=== PATIENT | female | born 1955 | race Caucasian/White ===

== ENCOUNTER → 2019-05-03 | Outpatient (CLI) | payer MEDICARE ==
--- NOTE | 2019-05-03 12:05 | XR ---
EXAMINATION TYPE: XR knee limited RT DATE OF EXAM: 05/03/2019 CLINICAL HISTORY: Chronic intermittent right knee pain and weakness TECHNIQUE: Frontal and lateral views of the right knee are obtained. COMPARISON: None. FINDINGS: There is no acute fracture/dislocation evident in right knee. Old fracture is well cortica radha of the superior pole of the patella. Incidentally noted fabella. Patellofemoral compartment join t space narrowing and marginal osteophytes are seen. Protuberant marginal osteophytes are seen of the medial compartment with mild joint space narrowing and smaller marginal osteophytes of the lateral c ompartment. There is diffuse osseous demineralization. No sizable suprapatellar joint effusion on rad iograph. IMPRESSION: 1. No acute fracture or dislocation in the right knee. 2. Moderate tricompartmental arthropathy greatest in the patellofemoral compartment adnexa within the medial compartment. 3. Old healed well-corticated fracture of the superior pole of patella. 4. Diffuse osseous demineralization.
== END | disposition home or self-care (01) ==
LOC: RADXRYALE 11:21
PROVIDERS: ATTEND Internal Medicine
DX: M17.11 Unilateral primary osteoarthritis, right knee (principal)

== ENCOUNTER → 2019-12-31 | Outpatient (CLI) | payer MEDICARE ==
--- NOTE | 2019-12-31 14:34 | MM ---
Reason for exam: additional evaluation requested from prior study. Last mammogram was performed 4 years and 4 months ago. History: Patient is postmenopausal and has history of breast cancer at age 46. Malignant mastectomy, May 03, 2002. Radiation therapy of the left breast, 2002. Malignant excisional biopsy of the left breast, December 07, 2001. Chemotherapy. Took tamoxifen for 7 years beginning at age 46. Physical Findings: Nurse did not find any significant physical abnormalities on exam. MG Diagnostic Mammo RT w CAD CC, MLO, and XCCL view(s) were taken of the right breast. Prior study comparison: September 08, 2015, right breast MG diagnostic mammo RT w CAD. June 10, 2013, right diagnostic mammogram w/CAD. The breast tissue is heterogeneously dense. This may lower the sensitivity of mammography. There is no discrete abnormality. No significant new findings when compared with previous films. These results were verbally communicated with the patient and result sheet given to the patient on 12/31/19. ASSESSMENT: Negative, BI-RAD 1 RECOMMENDATION: Follow-up diagnostic mammogram of the right breast in 1 year.
== END | disposition home or self-care (01) ==
LOC: RADMAMWWP 13:37
PROVIDERS: ATTEND Internal Medicine
DX: Z08 Encounter for follow-up examination after completed treatment for malignant neoplasm (principal); Z85.3 Personal history of malignant neoplasm of breast
CPT/HCPCS: 77065

== ENCOUNTER → 2020-09-26 | Outpatient (CLI) | payer MEDICARE ==
[2020-09-26 08:07] LABS: HCT 43.8 % (34.0-46.0); HGB 14.8 gm/dL (11.4-16.0); MCH 31.6 pg (25.0-35.0); MCHC 33.9 g/dL (31.0-37.0); MCV 93.4 fL (80.0-100.0); Mean Platelet Volume 7.8; Platelet Count 217 k/uL (150-450); RBC 4.68 m/uL (3.80-5.40); WBC 8.8 k/uL (3.8-10.6)
[2020-09-26 08:13] LABS: Prothrombin Time 10.5 sec (9.0-12.0)
[2020-09-26 08:18] LABS: ALT 25 U/L (4-34); AST 21 U/L (14-36); African American GFR (CKD) >90 (>60 ml/min/1.73 sqM); Albumin 4.3 g/dL (3.5-5.0); Alkaline Phosphatase 119 U/L (38-126); Anion Gap 6 mmol/L; Blood Urea Nitrogen 21 mg/dL (7-17); Calcium 9.5 mg/dL (8.4-10.2); Carbon Dioxide 28 mmol/L (22-30); Chloride 106 mmol/L (98-107); Glucose 136 mg/dL (74-99); Non-African American GFR(CKD) 89 (>60 ml/min/1.73 sqM); Potassium 4.2 mmol/L (3.5-5.1); Sodium 140 mmol/L (137-145); Total Bilirubin 0.5 mg/dL (0.2-1.3); Total Protein 7.3 g/dL (6.3-8.2)
[2020-09-26 08:27] LABS: Appearance,Urine Cloudy (Clear); Bacteria,Urine Many /hpf; Bilirubin,Urine Negative (Negative); Blood,Urine Small (Negative); Color,Urine Yellow; Glucose,Urine (UA) Negative (Negative); Hyaline Casts,Urine 1 /lpf (0-2); Ketones,Urine Negative (Negative); Leukocyte Esterase,Urine Large (Negative); Mucus,Urine Few /hpf; Nitrite,Urine Negative (Negative); Protein,Urine Trace (Negative); RBC,Urine 2 /hpf (0-5); Specific Gravity,Urine 1.026 (1.001-1.035); Squamous Epithelial Cell,Urine 12 /hpf (0-4); Urobilinogen,Urine <2.0 mg/dL (<2.0); WBC,Urine 29 /hpf (0-5)
== END | disposition home or self-care (01) ==
LOC: LABPAT 07:30
PROVIDERS: ATTEND Orthopaedic Surgery Sports Medicine
DX: Z01.812 Encounter for preprocedural laboratory examination (principal); I25.2 Old myocardial infarction; R94.31 Abnormal electrocardiogram [ECG] [EKG]
CPT/HCPCS: 36415; 80053; 81001; 85027; 85610; 85730; 87070; 93005

== ENCOUNTER 2020-10-19 05:33 | Day surgery (SDC) | payer MEDICARE ==
[2020-10-13 11:05] VITALS: BMI 41.1
[~2020-10-19 05:33] MED LIST: ACETAMINOPHEN TAB 500 MG TAB PO PRN; DEXAMETHASONE SOD PHOSPHATE 4 MG/ML 1 ML VIAL IV ONE; GABAPENTIN 300 MG CAP PO PRN; MELOXICAM 7.5 MG TAB PO PRN; ONDANSETRON 4 MG/2 ML VIAL IVP ONE; ONDANSETRON 4 MG/2 ML VIAL IVP PRN; ROPIVACAINE/EPI/CLONIDINE/KET 50 ML SYRINGE MISCELLANE PRN; TRANEXAMIC ACID 1,000 MG in SODIUM CHLORIDE 0.9% 100 ML IVPB PRN; ceFAZolin 3 GM in SODIUM CHLORIDE 0.9% 100 ML IVPB PRN
[2020-10-19] MEDS ORDERED: LIDOCAINE 1% (10MG/ML) FOR IV START INTRADERMA ONE (06:23)
[2020-10-19] MEDS: LACTATED RINGERS 1,000 ML IV SCH ×3 (06:25→20:29)
[2020-10-19] MEDS ORDERED: MIDAZOLAM 2 MG/2 ML VIAL IVP ONE (06:41)
[2020-10-19] MEDS ORDERED: HYDROmorphone 0.5 MG/0.5 ML SYRINGE IVP PRN ×2 (07:00→09:37)
[2020-10-19] MEDS ORDERED: fentaNYL (PF) 50 MCG/ML 2 ML AMP ONE (07:05)
[2020-10-19] MEDS ORDERED: LIDOCAINE 1% INJ 10MG/ML (20 ML MDV) ONE (07:05)
[2020-10-19] MEDS ORDERED: ROPIVACAINE 5 MG/ML 30 ML VIAL ONE (07:05)
[2020-10-19] MEDS ORDERED: DEXAMETHASONE SOD PHOSPHATE 4 MG/ML 1 ML VIAL ONE (07:05)
[2020-10-19] MEDS ORDERED: TRANEXAMIC ACID 1,000 MG/10 ML VIAL ONE (07:05)
[2020-10-19] MEDS ORDERED: SODIUM CHLORIDE 0.9% 100 ML BAG ONE (07:05)
[2020-10-19] MEDS ORDERED: PROPOFOL 10 MG/ML 20 ML VIAL IV ONE (07:05)
[2020-10-19] MEDS ORDERED: ceFAZolin 1,000 MG in SODIUM CHLORIDE 0.9% 1,000 ML IRRIGATION ONE (07:50)
--- NOTE | 2020-10-19 09:07 | P.ANPRN ---
Procedure Note - Anesthesia - Nerve Block Performed Right Adductor Canal Infusion Time Out Performed: Yes Date of Procedure: 10/19/20 Procedure Start Time: 06:39 Procedure Stop Time: 06:51 Location of Patient: PreOp Indication: Acute Post-Operative Pain, Requested by Surgeon Sedation Type: Sedate with meaningful contact maintained Preparation: Sterile Prep, Sterile Dressing Position: Supine Catheter: Indwelling Needle Types: On-Q Needle Gauge: 18 Ultrasound used to visualize needle placement: Yes Ultrasound used to observe medication spread: Yes Injectate: 0.5% Ropivacaine (see comment for volume) (20 ml + decadron 4 mg) Blood Aspirated: No Pain Paresthesia on Injection Noted: No Resistance on Injection: Normal Image Stored and Saved: Yes Events: Uneventful and Well Tolerated Right iPack Single Time Out Performed: Yes Date of Procedure: 10/19/20 Procedure Start Time: 06:52 Procedure Stop Time: 06:57 Location of Patient: PreOp Indication: Acute Post-Operative Pain, Requested by Surgeon Sedation Type: Sedate with meaningful contact maintained Preparation: Sterile Prep, Sterile Dressing Position: Left Lateral Catheter: None Needle Types: Pajunk Needle Gauge: 20 Ultrasound used to visualize needle placement: Yes Ultrasound used to observe medication spread: Yes Injectate: 0.5% Ropivacaine (see comment for volume) (20 ml + decadron 4 mg) Blood Aspirated: No Pain Paresthesia on Injection Noted: No Resistance on Injection: Normal Image Stored and Saved: Yes Events: Uneventful and Well Tolerated
[2020-10-19] MEDS ORDERED: ACETAMINOPHEN TAB 325 MG TAB PO PRN (09:37)
[2020-10-19] MEDS ORDERED: MAGNESIUM HYDROXIDE 2,400 MG/10 ML CUP PO PRN (09:37)
[2020-10-19] MEDS ORDERED: HYDROmorphone 0.2 MG/1 ML SYRINGE IVP PRN (09:37)
[2020-10-19] MEDS ORDERED: NALOXONE 0.4 MG/ML 1 ML VIAL IV PRN (09:37)
[2020-10-19] MEDS ORDERED: NA PHOS,M-B/NA PHOS,DI-BA 133 ML ENEMA RECTAL PRN (09:37)
[2020-10-19] MEDS ORDERED: HYDROmorphone 1 MG/ML 1 ML SYRINGE IVP PRN (09:37)
[2020-10-19] MEDS ORDERED: ONDANSETRON 4 MG/2 ML VIAL IVP PRN (09:37)
[2020-10-19] MEDS ORDERED: TEMAZEPAM 15 MG CAP PO PRN (09:37)
[2020-10-19] MEDS ORDERED: bisacodyL 10 MG SUPP RECTAL PRN (09:37)
[2020-10-19] MEDS ORDERED: traMADol 50 MG TAB PO PRN (09:37)
[2020-10-19] MEDS ORDERED: diazePAM 5 MG TAB PO PRN (09:37)
[2020-10-19] MEDS ORDERED: HYDROcodone/APAP 7.5-325MG 1 EACH TAB PO PRN (09:42)
[2020-10-19] MEDS ORDERED: ROPIVACAINE 0.2%-NS ON-Q PUMP 1,090 MG, EMPTY PAIN BALL 1 EACH MISCELLANE PRN (09:42)
[2020-10-19] MEDS ORDERED: ROPIVACAINE 0.2%-NS ON-Q PUMP 2 MG/ML EACH MISCELLANE ONE (10:03)
--- NOTE | 2020-10-19 10:25 | XR ---
EXAMINATION TYPE: XR knee limited RT DATE OF EXAM: 10/19/2020 CLINICAL HISTORY: Postoperative TECHNIQUE: 2 views of the right knee are obtained. COMPARISON: 05/03/2019. FINDINGS: The patient is status post right total knee replacement in excellent alignment. Soft tissue gas and s oft tissue swelling is indicative of recent postoperative status. IMPRESSION: Status post recent right total knee replacement.
[2020-10-19] MEDS: ceFAZolin 3 GM in SODIUM CHLORIDE 0.9% 100 ML IVPB SCH (16:44)
[2020-10-19] MEDS: HYDROcodone/APAP 7.5-325MG 1 EACH TAB PO PRN (18:28)
[2020-10-19] MEDS: hydrOXYzine pamoate 25 MG CAP PO PRN (18:28)
--- NOTE | 2020-10-19 19:28 | OP ---
OPERATIVE REPORT DATE OF SERVICE: 10/19/2020. SURGEON: Pancho Mejia MD. AUTOMOTIVE GENERATOR REPAIRER: Rome MARTI. PREOPERATIVE DIAGNOSIS: Right knee osteoarthrosis. POSTOP DIAGNOSIS: Right knee osteoarthrosis. OPERATION: Right total knee arthroplasty. ANESTHESIA: Spinal sedation. ESTIMATED BLOOD LOSS: 100 mL. TOURNIQUET: Tourniquet time was 49 minutes at 250 mmHg. COMPLICATIONS: None apparent. DRAINS: None. DISPOSITION: Postanesthesia care unit. INDICATIONS: Jennifer is a very pleasant 65-year-old female with longstanding history of right knee pain. History and physical examination are consistent with advanced right knee osteoarthrosis. She has been through significant nonoperative management up to this point. Further treatment options were discussed and she decided to go forward with a right total knee arthroplasty. The risks of procedure were discussed with her in detail. These risks include, but are not limited to risk of infection, nerve damage, bleeding, pain, and a small risk of deep vein thrombosis which could lead to fatal pulmonary embolism. There is also risk of loosening of the implant which could require revision operation. The patient understands these risks. All of her questions were answered to her satisfaction. Appropriate informed consent was obtained. DESCRIPTION OF PROCEDURE: The patient was identified in the preoperative holding area. Surgical site was marked by both the patient and myself. She was given 2 grams of Ancef IV prophylactic purposes. She was then transferred to the operative suite. She was placed supine on the operative table. A spinal anesthetic was then administered and dosed per the anesthesia without apparent complication. Examination under anesthesia was then performed. The patient was 2-3 degrees shy of full extension. She had 100 degrees of flexion. The medial collateral ligament, lateral collateral ligament and posterior cruciate ligaments were stable. Tourniquet was then placed high on the right upper thigh well-padded in preparation for surgery. The patient's right lower extremity was then prepped and draped in usual sterile fashion. Standard surgical pause undertaken to ensure that we were operating the correct site and that appropriate preoperative antibiotics were given. All staff were in agreement and we proceeded. The outlines of the patella marked surgical pen. A planned 12 cm vertical incision centered over the patella was marked with surgical pen. Leg was then exsanguinated with an Esmarch dressing. The knee was then flexed and tourniquet inflated to 250 mmHg. The total tourniquet time for the procedure was 49 minutes Incision was then made with a 10 blade scalpel. Dissection carried down sharply overlying fascia. Great care was taken to minimize the skin flaps. The knee was then exposed using a standard medial parapatellar approach. A small cuff of quadriceps tendon was then left for suturing. She was in a bit of varus preoperatively. A standard medial release was then made. Superficial medial collateral ligament was dissected off the bone around to the posterior aspect of the proximal tibia. The medial meniscus was then excised as well. The lateral meniscus was also released anteriorly. The leg was then externally rotated. The patella was everted. The knee was flexed. Retractors were then placed to protect the collateral ligaments. I then proceeded to remove the infrapatellar fat pad. It was excised sharply tangentially with the fibers of the patellar tendon. I then proceeded to remove peripheral osteophytes. It was done with a rongeur. I then proceeded with the distal femoral resection. She did have near full extension. A planned 9 mm resection was then done. The femoral canal was then entered and then the femur approximately 10 mm anterior to the origin of the posterior cruciate ligament. The niurka was then advanced down the center of the femur and placed intramedullary. Based on the preoperative radiographs, the angle between the anatomic and mechanical axis of the femur was approximately 4-5 degrees. The valgus angle of the distal femoral cutting guide was then set at 4 degrees for the right knee. The distal femoral cutting guide was then advanced over the intramedullary niurka. This was seated firmly against the femur. Then as mentioned planned to take 9 mm off the distal femur. The cutting block was then secured onto the femur with pins. The jig was then removed. The distal femoral cut was made through the slot of the block. The pins then removed. The femoral cutting block was removed. The accuracy of the distal femoral cuts was checked with 2 flat bars. I then proceeded with femoral sizing. The posterior referencing sizing guide was held firmly against the resected distal surface of the femur. The posterior condyles were resting on the posterior plane of the guide. The sizing stylus was then placed on the anterior femur. The size was measured as a size 10. I then assessed for femoral rotation. Plan was for 3 degrees external rotation. Three degrees external rotation was placed onto the jig. These holes were then marked. I then confirmed the rotation by 3 separate methods. This done using epicondylar axis as well as Whitesides line and posterior referencing. They deemed that the external rotation was proper. I then went forward placing the femoral cutting block. This was placed over the previously placed pin holes. The Teddy wing was then placed on the anterior slots to ensure that we would not notch the anterior femur with the anterior femoral cut. I then proceeded with the anterior femoral cut. This was flush with the anterior cortex of the femur. The posterior cuts were then made followed by the anterior chamfer cut, then the posterior chamfer cut. The cutting block was then removed. Throughout the resection, the collateral ligaments were protected with retractors. I then placed a trial size 10 femur. It was slightly wide, but the narrow fit very nicely and it fit flush with the distal end of the femur. The drill hole was then made. I then proceeded with the tibial cut. I planned for cruciate retaining knee. The guide was placed and set for varus valgus and for slope. The height was set for approximate 2 mm resection from the medial tibial plateau which was the lower side. I was happy with the alignment amount of resection. The cutting block was then pinned to the proximal tibia. The alignment niurka was removed. The proximal tibia was resected with a reciprocating saw. Again, this was done with retractors protecting the collateral ligaments as well as the posterior cruciate ligament. I then proceeded to evaluate the flexion extension gaps. A 10 mm block was then placed. The flexion and extension gaps were equal. I then proceed with resection of posterior osteophytes. She had very minimal posterior osteophytes. This was done using a curved osteotome. This resected the posterior osteophytes and posterior capsule stripping was done off the posterior aspect of the femur at this time. The osteophytes were then removed. I then proceed with resection of patella. The thickness of patella was measured using a caliper. The thickness was 22 mm. The thickness of the anticipated patellar dome was taken into account. Resection was then performed and confirmed to be equal in 4 quadrants using a caliper. Approximately 14 mm of bone remained after resection. A 32 x 8.5 standard patellar trial was then placed. The holes drilled. The trial was then placed. I then proceed with sizing the tibial plate. Size E tibial plate fit very nicely. I then placed the trial femur the tibial tray and patellar button. The 10 mm trial tibial insert was also placed. The components fit very nicely. She had full extension and flexion. The extension and flexion gaps were equal and stable to varus and valgus stress. The patella tracked appropriately. Tibial tray rotation was then marked with a Bovie. This was externally rotated properly. I then proceeded with tibial preparation. First, drilled the femoral holes and removed the femoral component. The tibial tray was then set for proper external rotation as well as mediolateral placement onto the tibia. It was then pinned into place. I then proceeded punching the keel. I then decided to proceed with cementing of all of our components. The knee was thoroughly irrigated with sterile saline solution via pulse lavage. The lateral geniculate artery was identified and cauterized. All blood was removed from the bone of the tibia femur and patella with pulse lavage. I then proceed with cementing. Two packs of antibiotic bone cement were prepared on the back table by the rn medical surgical. I then proceed with cementing the tibia first. The cement was impacted into the keel as well as deeply seated in the bone. A second coat of cement was then placed. The tibia was then impacted into place. Excess cement was removed with [place]'s and Joker's. I then proceeded with cementing the femoral component. The femoral component was also cemented using standard technique. Excess cement was removed. A 10 mm trial insert was then placed into the knee. It was brought into full extension with a constant axial load placed until the cement had hardened. The patellar component was then cemented. This held firmly with a compressive device until the cement had dried. When the cement had dried, the knee was taken out of extension. All excess cement was removed from around the prosthesis. I then trialed the knee with a 10 mm insert. The flexion and extension gaps were appropriate. The knee was stable. It came in full extension. I decided to go forward with 10 mm medial congruent cross linked cruciate- retaining tibial insert. Polyethylene was then placed on the tibial tray and locked into place. The knee was then reduced. The knee was again further irrigated with sterile saline solution with antibiotic added. The tourniquet was then deflated. The total tourniquet time for the procedure was 49 minutes at 250 mmHg. Final components were Mady Persona size 10 narrow cruciate-retaining femoral component, size E tibial tray, a 10 mm medial congruent cruciate-retaining polyethylene insert and a 32 x 8.5 mm patella. I then proceeded with closure. Again, the knee was thoroughly irrigated. The quadriceps tendon and the medial retinaculum were reapproximated with #2 Ethibond suture. The extensor mechanism was then closed with a running #2 Quill suture. Subcutaneous tissues were closed with 2-0 Vicryl interrupted suture. The skin was closed with a running 3-0 Quill suture. Dermabond was applied to the incision. Sterile compressive dressing was then applied. All sponge and needle counts were deemed correct prior to closure. The patient tolerated the procedure without apparent complication. She was transferred recovery room in stable condition. MMODL / IJN: [id number] /
[2020-10-19] MEDS: ASPIRIN 81 MG PO SCH (20:29)
[2020-10-19] MEDS ORDERED: SENNOSIDES-DOCUSATE SODIUM 1 EACH TAB PO SCH (21:00)
[2020-10-20] MEDS: HYDROcodone/APAP 7.5-325MG 1 EACH TAB PO PRN ×3 (00:17→13:17)
[2020-10-20] MEDS: ceFAZolin 3 GM in SODIUM CHLORIDE 0.9% 100 ML IVPB SCH (00:19)
[2020-10-20] MEDS: LACTATED RINGERS 1,000 ML IV SCH (06:44)
[2020-10-20 07:30] VITALS: BP 110/70; PULSE 88; RESP 17; TEMP 98.8
[2020-10-20] MEDS: ASPIRIN 81 MG PO SCH (08:12)
[2020-10-20] MEDS: hydrOXYzine pamoate 25 MG CAP PO PRN ×2 (08:13→13:17)
[2020-10-20] MEDS ORDERED: lisinopriL 10 MG TAB PO SCH (09:00)
[2020-10-20] MEDS ORDERED: ASPIRIN 81 MG PO SCH (09:00)
--- NOTE | 2020-10-20 09:14 | P.PN ---
Progress Note - Text 10/20/20 636am 65-year-old female status post total knee replacement by Dr. Mejia. Patient has an On-Q pump for postop pain control with the solution running at 8 mL an hour with a VAS of 2. Dressing clean dry and intact. Plan to continue On-Q pump
[2020-10-20 11:09] LABS: Basophils # (A) 0.02 X 10*3/uL (0.00-0.10); Basophils % (A) 0.2 %; Eosinophils # (A) 0.01 X 10*3/uL (0.04-0.35); Eosinophils % (A) 0.1 %; HCT 37.6 % (37.2-46.3); Lymphocytes # (A) 1.53 X 10*3/uL (0.90-5.00); MCH 30.8 pg (27.0-32.0); MCHC 31.9 g/dL (32.0-37.0); MCV 96.7 fL (80.0-97.0); Mean Platelet Volume 11.3 fL (9.5-12.2); Monocytes % (A) 10.2 %; Neutrophils # (A) 8.93 X 10*3/uL (1.80-7.70); Neutrophils % (A) 76.2 %; Platelet Count 219 X 10*3/uL (140-440); RBC 3.89 X 10*6/uL (4.10-5.20); RDW 13.2 % (11.5-14.5); WBC 11.73 X 10*3/uL (4.50-10.00)
--- NOTE | 2020-10-20 11:23 | P.DS ---
Providers Expected date of discharge: 10/20/20 Attending physician: Pancho Mejia Consults: 10/19/20 09:37 Consult Physician Routine Consulting Provider: Tavia Malhotra Consult Reason/Comments: post op medical management Do you want consulting provider notified?: Yes Primary care physician: Tea Ghotra - Discharge Diagnosis(es) (1) Osteoarthritis of right knee Patient was admitted to the OR on 10/19/20 to undergo a right total knee arthroplasty. She had failed conservative measures as an outpatient and desired to proceed with elective surgery after given informed consent. She underwent the above procedure which she tolerated well without complication. Postoperative hospital course has remained without complication. On day of discharge she is afebrile, vital signs stable, labs within acceptable ranges, tolerating by mouth meds and diet, voiding without difficulty, positive flatus, denies abdominal pain or calf pain, pain is controlled on oral pain medication and has no new complaints. Wound is benign, neurovascular status is intact, calf is soft and nontender, abdomen soft and nontender. Review of systems is negative for numbness, tingling, fever, chills, chest pain, shortness of breath, nausea, vomiting, dizziness, headaches, slurred speech or other. Current Visit: Yes Status: Acute Priority: Medium Procedures: Right TKA Patient Condition at Discharge: Good Plan - Discharge Summary Discharge Rx Participant: No New Discharge Prescriptions: New Aspirin [Adult Low Dose Aspirin EC] 81 mg PO BID #60 tablet. HYDROcodone/APAP 7.5-325MG [[place] 7.5-325] 1 - 2 each PO Q6HR PRN #42 tab PRN Reason: Pain Docusate [Colace] 100 mg PO BID #60 capsule No Action Multivit with Calcium,Iron,Min [Women's Multivitamin] 1 each PO DAILY Sulfamethoxazole/Trimethoprim [Sulfamethoxazole-Tmp Ds Tablet] 1 each PO BID Diclofenac Sodium Gel [Voltaren Gel] 2 gm TOPICAL DIRECTED lisinopriL 10 mg PO DAILY Aspirin [Adult Low Dose Aspirin EC] 81 mg PO DAILY Clear Nails Pro (Antifungal) 1 dose TOPICAL BID Discharge Medication List Aspirin [Adult Low Dose Aspirin EC] 81 mg PO DAILY 10/13/20 [History] Clear Nails Pro (Antifungal) 1 dose TOPICAL BID 10/13/20 [History] Diclofenac Sodium Gel [Voltaren Gel] 2 gm TOPICAL DIRECTED 10/13/20 [History] Multivit with Calcium,Iron,Min [Women's Multivitamin] 1 each PO DAILY 10/13/20 [History] Sulfamethoxazole/Trimethoprim [Sulfamethoxazole-Tmp Ds Tablet] 1 each PO BID 10/13/20 [History] lisinopriL 10 mg PO DAILY 10/13/20 [History] Aspirin [Adult Low Dose Aspirin EC] 81 mg PO BID #60 tablet. 10/20/20 [Rx] Docusate [Colace] 100 mg PO BID #60 capsule 10/20/20 [Rx] HYDROcodone/APAP 7.5-325MG [[place] 7.5-325] 1 - 2 each PO Q6HR PRN #42 tab 10/20/20 [Rx] Follow up Appointment(s)/Referral(s): Pancho Mejia MD [STAFF PHYSICIAN] - 10 Days Activity/Diet/Wound Care/Special Instructions: Attend outpatient Physical Therapy at [facility] on 10/23/20 at 1:30 p.m. as scheduled prior to surgery. Keep wound clean and dry Take meds as directed Follow-up with Dr. Mejia in office Weight bear as tolerated May shower in 3 days if no bleeding Discharge Disposition: HOME WITH HOME HEALTH SERVICES
--- NOTE | 2020-10-20 11:44 | P.CONS ---
History of Present Illness - Reason for Consult Leukocytosis - History of Present Illness Patient is pleasant 65-year-old female was admitted for right knee arthroplasty patient is clinically doing well but pressure is low, which is expected postoperatively patient does take 10 mg of Zocor. Patient denied any fever chills patient does have leukocytosis denied any dysuria denied any cough no evidence of for sepsis clinically. Patient's Wiley catheter was removed. Patient did well with physical therapy is being discharged today REVIEW OF SYSTEMS: CONSTITUTIONAL: No fever, no malaise, no fatigue. HEENT: No recent visual problems or hearing problems. Denied any sore throat. CARDIOVASCULAR: No chest pain, orthopnea, PND, no palpitations, no syncope. PULMONARY: No shortness of breath, no cough, no hemoptysis. GASTROINTESTINAL: No diarrhea, no nausea, no vomiting, no abdominal pain. NEUROLOGICAL: No headaches, no weakness, no numbness. HEMATOLOGICAL: Denies any bleeding or petechiae. GENITOURINARY: Denies any burning micturition, frequency, or urgency. MUSCULOSKELETAL/RHEUMATOLOGICAL: Denies any joint pain, swelling, or any muscle pain. ENDOCRINE: Denies any polyuria or polydipsia. The rest of the 14-point review of systems is negative. PHYSICAL EXAMINATION: GENERAL: The patient is alert and oriented x3, not in any acute distress. Well developed, well nourished. HEENT: Pupils are round and equally reacting to light. EOMI. No scleral icterus. No conjunctival pallor. Normocephalic, atraumatic. No pharyngeal erythema. No thyromegaly. CARDIOVASCULAR: S1 and S2 present. No murmurs, rubs, or gallops. PULMONARY: Chest is clear to auscultation, no wheezing or crackles. ABDOMEN: Soft, nontender, nondistended, normoactive bowel sounds. No palpable organomegaly. MUSCULOSKELETAL: Deferred to orthopedic surgery EXTREMITIES: No cyanosis, clubbing, or pedal edema. NEUROLOGICAL: Gross neurological examination did not reveal any focal deficits. SKIN: No rashes. Assessment and plan -Hypertension:: Patient is bit hypotensive which is expected in the perioperative period recommended her to hold off lisinopril today and tomorrow -Leukocytosis without any of this infection at this time patient was as an outpatient which can be discontinued at this time as patient is suitable days of antibiotic -Right knee arthroplasty for severe multi-joint osteoarthritis clinically doing well and is being discharged on aspirin 81 mg twice a day for DVT prophylaxis. Patient can be discharged from medical perspective Past Medical History Past Medical History: Cancer, Hypertension, Osteoarthritis (OA) Additional Past Medical History / Comment(s): LT BREAST CANCER 2003-(SURGERY, CHEMO AND RADIATION)., VARICOSE VEINS, CURRENT UTI WITH RX .,TOENAIL FUNGUS., STATES SHE WAS TAKING EXCESS TYLENOL AND WAS TOLD SHE WAS CAUSING LIVER DAMAGE. History of Any Multi-Drug Resistant Organisms: None Reported Past Surgical History: Breast Surgery, Tonsillectomy Additional Past Surgical History / Comment(s): LT MASECTOMY Past Anesthesia/Blood Transfusion Reactions: No Reported Reaction Past Psychological History: No Psychological Hx Reported Additional Psychological History / Comment(s): . Smoking Status: Former smoker Past Alcohol Use History: Occasional Additional Past Alcohol Use History / Comment(s): QUIT SMOKING 6 YRS AGO (2014)., STARTED SMOKING AT AGE 17, SMOKED A PACK PER WEEK. Past Drug Use History: None Reported - Past Family History Father History Unknown: Yes Family Medical History: No Reported History Additional Family Medical History / Comment(s): WAS RAISED BY NALLELY Mother History Unknown: Yes Family Medical History: No Reported History Son(s) Family Medical History: Cancer Additional Family Medical History / Comment(s): TESTICULAR CANCER Medications and Allergies Home Medications Medication Instructions Recorded Confirmed Type Aspirin [Adult Low Dose Aspirin EC] 81 mg PO DAILY 10/13/20 10/19/20 History Clear Nails Pro (Antifungal) 1 dose TOPICAL BID 10/13/20 10/19/20 History Diclofenac Sodium Gel [Voltaren 2 gm TOPICAL DIRECTED 10/13/20 10/19/20 History Gel] Multivit with Calcium,Iron,Min 1 each PO DAILY 10/13/20 10/19/20 History [Women's Multivitamin] Aspirin [Adult Low Dose Aspirin EC] 81 mg PO BID #60 tablet. 10/20/20 Rx Docusate [Colace] 100 mg PO BID #60 capsule 10/20/20 Rx HYDROcodone/APAP 7.5-325MG [[place] 1 - 2 each PO Q6HR PRN #42 tab 10/20/20 Rx 7.5-325] lisinopriL 10 mg PO DAILY #0 10/20/20 10/19/20 Rx Allergies Allergy/AdvReac Type Severity Reaction Status Date / Time No Known Allergies Allergy Verified 10/19/20 05:55 Physical Exam Vitals: Vital Signs Temp Pulse Resp BP Pulse Ox 10/20/20 07:29 98.8 F 88 17 110/70 100 10/20/20 04:00 98.1 F 63 16 121/67 95 10/20/20 02:00 97.4 F L 68 14 110/70 90 L 10/20/20 00:24 97.4 F L 74 16 138/80 96 10/19/20 20:00 98.2 F 68 14 135/80 94 L 10/19/20 14:31 77 144/82 10/19/20 14:16 82 124/71 10/19/20 14:01 73 134/81 10/19/20 13:46 79 146/78 10/19/20 13:34 97.8 F 85 16 147/83 96 10/19/20 13:00 72 16 126/69 100 10/19/20 12:30 57 L 16 136/69 98 10/19/20 12:00 60 16 119/61 99 Intake and Output 10/19/20 10/20/20 10/20/20 22:59 06:59 14:59 Intake Total 540 Balance 540 Intake: Oral 540 Other: Voiding Method Toilet # Voids 3 Weight 133.22 kg Results CBC & Chem 7: 10/20/20 06:36 Labs: Abnormal Lab Results - Last 24 Hours (Table) 10/20/20 Range/Units 06:36 WBC 11.73 H (4.50-10.00) X 10*3/uL RBC 3.89 L (4.10-5.20) X 10*6/uL MCHC 31.9 L (32.0-37.0) g/dL Neutrophils # 8.93 H (1.80-7.70) X 10*3/uL Monocytes # 1.20 H (0.20-1.00) X 10*3/uL Eosinophils # 0.01 L (0.04-0.35) X 10*3/uL
[2020-10-20] MEDS ORDERED: MULTIVITAMINS, THERA 1 EACH TAB PO SCH (12:00)
== END 2020-10-20 14:00 | disposition home health service (06) ==
LOC: OR 05:33 → 4SSUR 12:45 → OR 10-20 14:00
PROVIDERS: ATTEND Orthopaedic Surgery Sports Medicine
DX: M17.11 Unilateral primary osteoarthritis, right knee (principal); I10 Essential (primary) hypertension; Z85.3 Personal history of malignant neoplasm of breast; Z87.891 Personal history of nicotine dependence; Z79.899 Other long term (current) drug therapy; Z79.82 Long term (current) use of aspirin; E66.01 Morbid (severe) obesity due to excess calories; Z68.43 Body mass index [BMI] 50.0-59.9, adult
CPT/HCPCS: 97162; 64999; 64448; 76942; 85025; 73560; 27447; C1776; C1713; J2250; J1100; J0690 ×3; J2405; J2001; J3010; J2795 ×2; J2704; J1170; 88305; 88311

== ENCOUNTER → 2021-06-13 | Outpatient (CLI) | payer MEDICARE ==
--- NOTE | 2021-06-14 10:44 | MM ---
Reason for exam: screening (asymptomatic). Last mammogram was performed 1 year and 5 months ago. History: Patient is postmenopausal and has history of breast cancer at age 46. Malignant mastectomy, May 03, 2002. Radiation therapy of the left breast, 2002. Malignant excisional biopsy of the left breast, December 07, 2001. Chemotherapy. Took tamoxifen for 7 years beginning at age 46. Physical Findings: A clinical breast exam by your physician is recommended on an annual basis and results should be correlated with mammographic findings. MG 3D Scr Jared Unilateral W/Cad CC and MLO view(s) were taken of the right breast. Prior study comparison: December 31, 2019, right breast MG diagnostic mammo RT w CAD. September 08, 2015, right breast MG diagnostic mammo RT w CAD. The breast tissue is heterogeneously dense. This may lower the sensitivity of mammography. There are benign appearing round calcifications in the right breast. There is no discrete abnormality. ASSESSMENT: Benign, BI-RAD 2 RECOMMENDATION: Routine screening mammogram of the right breast in 1 year.
--- NOTE | 2021-06-14 11:05 | BD ---
EXAMINATION TYPE: Axial Bone Density DATE OF EXAM: 06/13/2021 COMPARISON: NONE CLINICAL HISTORY: 66 years year old Female. ICD-10 CODE: N95.8 MENOPAUSAL AND PERIMENOPAUSAL DISORDE R Height: 5 FT 9 1/2 IN Weight: 299 FRAX RISK QUESTIONS: Alcohol (3 or more units per day): NO Family History (Parent hip fracture): NO Glucocorticoids (More than 3mos): NO (Ex: prednisone, prednisolone, methylprednisolone, dexamethasone, and hydrocortisone). History of Fracture in Adulthood: YES Secondary Osteoporosis: 1. Type 1 Diabetes: NO 2. Hyperthyroidism: NO 3. Menopause before 45: YES 4. Malnutrition: NO 5. Chronic liver disease: NO Rheumatoid Arthritis: YES Current Tobacco Use: FORMER RISK FACTORS HISTORY OF: Surgery to Spine/Hip(right/left)/Wrist (right/left): NO Family History of Osteoporosis: NO Active: YES Diet low in dairy products/other sources of calcium: NO Postmenopausal woman: YES Take estrogen and/or progesterone medications: NO Lost more than 2 inches in height since high school: YES Frequent falls: NO Poor Health: GOOD Hyperparathyroidism: NO Adrenal Insufficiency: NO MEDICATIONS: Additional Medications: LISINOPRIL Additional History: EXAM MEASUREMENTS: Bone mineral densitometry was performed using the [employer]. Bone mineral density as measured about the Lumbar spine is: ----- L1-L4(G/cm2): 1.399 T Score Values are as follows: ----- L1: 1.6 ----- L2: 1.2 ----- L3: 1.8 ----- L4: 2.4 ----- L1-L4: 1.8 Bone mineral density has: INCREASED 6.6 % since study of: 2008 Bone mineral density about the R hip (g/cm2): 0.923 Bone mineral density about the L hip (g/cm2): 0.772 T Score values are as follows: -----R Neck: -0.8 -----L Neck: -1.9 -----R Total: -0.8 -----L Total: -1.6 Bone mineral density has: DECREASED -2.4 % since study of: 2008 FRAX%s: The graph provided illustrates a 9.4 % chance for a major osteoporotic fx and a 1.3 % chance for the hips probability for fx in 10 years time. IMPRESSION: Osteopenia NOTE: T-SCORE=SD OF THE YOUNG ADULT MEAN.
== END | disposition home or self-care (01) ==
LOC: RADBDWWP 15:14
PROVIDERS: ATTEND Internal Medicine
DX: Z12.31 Encounter for screening mammogram for malignant neoplasm of breast (principal); M85.852 Other specified disorders of bone density and structure, left thigh; Z78.0 Asymptomatic menopausal state; Z85.3 Personal history of malignant neoplasm of breast
CPT/HCPCS: 77067; 77080

== ENCOUNTER → 2023-01-24 | Outpatient (CLI) | payer MEDICARE ==
[2023-01-24 08:54] LABS: Partial Thromboplastin Time 26.8 sec (22.0-30.0); Prothrombin Time 10.7 sec (10.0-12.5)
[2023-01-24 11:13] LABS: HCT 43.8 % (37.2-46.3); HGB 14.5 d/dL (12.0-15.0); MCHC 33.1 d/dL (32.0-37.0); MCV 93.6 FL (80.0-97.0); Mean Platelet Volume 11.4 FL (9.5-12.2); NRBC Per 100 WBC 0 X 10*3/uL (0.00-0.01); Platelet Count 232 X 10*3/uL (140-440); RBC 4.68 X 10*6/uL (4.10-5.20); RDW 13.8 % (11.5-14.5)
[2023-01-24 11:26] LABS: ALT 17 U/L (8-44); AST 13 U/L (13-35); Albumin 4.2 d/dL (3.8-4.9); Albumin/Globulin Ratio 1.56 Ratio (1.60-3.17); Alkaline Phosphatase 139 U/L (41-126); BUN/Creat Ratio 24.43 Ratio (12.00-20.00); Blood Urea Nitrogen 17.1 mg/dL (9.0-27.0); Calcium 9.6 mg/dL (8.7-10.3); Carbon Dioxide 32.9 mmol/L (21.6-31.8); Chloride 107 mmol/L (96-109); Globulin 2.7 d/dL (1.6-3.3); Glucose 115 mg/dL (70-110); Potassium 4.4 mmol/L (3.5-5.5); Sodium 143 mmol/L (135-145); Total Bilirubin 0.4 mg/dL (0.3-1.2); Total Protein 6.9 d/dL (6.2-8.2)
[2023-01-24 14:49] LABS: Appearance,Urine Clear (Clear); Bilirubin,Urine Negative (Negative); Blood,Urine Negative (Negative); Color,Urine Yellow (Yellow); Ketones,Urine Negative (Negative); Nitrite,Urine Negative (Negative); Urobilinogen,Urine 0.2 E.U./DL
[2023-01-24 14:55] LABS: Bacteria,Urine 2+ (None Seen)
== END | disposition home or self-care (01) ==
LOC: LABPAT 07:21
PROVIDERS: ATTEND Orthopaedic Surgery
DX: Z01.812 Encounter for preprocedural laboratory examination (principal); M16.11 Unilateral primary osteoarthritis, right hip
CPT/HCPCS: 80053; 81001; 85027; 85610; 85730; 86850; 86900; 86901; 87070

== ENCOUNTER 2023-02-04 06:56 | Day surgery (SDC) | payer MEDICARE ==
[2023-01-30 11:05] VITALS: BMI 40.4
[~2023-02-04 06:56] MED LIST changes: +LACTATED RINGERS 1,000 ML IV SCH; +LIDOCAINE 1% (10MG/ML) FOR IV START INTRADERMA PRN; -ONDANSETRON 4 MG/2 ML VIAL IVP PRN; -ROPIVACAINE/EPI/CLONIDINE/KET 50 ML SYRINGE MISCELLANE PRN; +TRANEXAMIC 1,000 MG/100ML-NACL 1,000 MG in SALINE 1 100ML.BAG IVPB PRN; -TRANEXAMIC ACID 1,000 MG in SODIUM CHLORIDE 0.9% 100 ML IVPB PRN
[2023-02-04] MEDS ORDERED: HYDROmorphone 0.5 MG/0.5 ML SYRINGE IVP PRN ×4 (07:00→09:23)
[2023-02-04] MEDS ORDERED: MIDAZOLAM 2 MG/2 ML VIAL IVP ONE (08:08)
[2023-02-04] MEDS ORDERED: fentaNYL (PF) 50 MCG/ML 2 ML AMP IVP ONE (08:10)
--- NOTE | 2023-02-04 08:30 | P.ANPRN ---
Procedure Note - Anesthesia - Nerve Block Performed Right Dilip Single Time Out Performed: Yes Date of Procedure: 02/04/23 Procedure Start Time: : Procedure Stop Time: 08:12 Location of Patient: PreOp Indication: Acute Post-Operative Pain, Requested by Surgeon Specifically requested for management of pain by : Sundeep Buckley Sedation Type: Sedate with meaningful contact maintained Preparation: Sterile Prep Position: Supine Needle Types: Pajunk Needle Gauge: 21 Ultrasound used to visualize needle placement: Yes Ultrasound used to observe medication spread: Yes Injectate: 0.5% Ropivacaine (see comment for volume) (15 ml + 10 ml Ns + 4 mg dexamethasone) Blood Aspirated: No Pain Paresthesia on Injection Noted: No Resistance on Injection: Normal Image Stored and Saved: Yes Events: Uneventful and Well Tolerated
[2023-02-04] MEDS ORDERED: DEXAMETHASONE SOD PHOSPHATE 4 MG/ML 1 ML VIAL ONE (09:20)
[2023-02-04] MEDS ORDERED: fentaNYL (PF) 50 MCG/ML 2 ML AMP ONE (09:20)
[2023-02-04] MEDS ORDERED: MIDAZOLAM 2 MG/2 ML VIAL ONE (09:20)
[2023-02-04] MEDS ORDERED: SODIUM CHLORIDE 0.9% (PF) 10 ML VIAL ONE (09:20)
[2023-02-04] MEDS ORDERED: PROPOFOL 10 MG/ML 20 ML VIAL IV ONE (09:20)
[2023-02-04] MEDS ORDERED: TRANEXAMIC 1,000 MG/100ML-NACL PREMIX BAG ONE (09:20)
[2023-02-04] MEDS ORDERED: ePHEDrine 50 MG/ML 1 ML VIAL ONE (09:20)
[2023-02-04] MEDS ORDERED: ROPIVACAINE 5 MG/ML 30 ML VIAL ONE (09:20)
[2023-02-04] MEDS ORDERED: NALOXONE 0.4 MG/ML 1 ML VIAL IV PRN (09:23)
[2023-02-04] MEDS ORDERED: ONDANSETRON 4 MG/2 ML VIAL IVP PRN (09:23)
[2023-02-04] MEDS ORDERED: MAGNESIUM HYDROXIDE 2,400 MG/30 ML CUP PO PRN (09:23)
[2023-02-04] MEDS ORDERED: HYDROcodone/APAP 7.5-325MG 1 EACH TAB PO PRN (09:28)
[2023-02-04] MEDS ORDERED: ROPIVACAINE 5 MG/ML 30 ML VIAL MISCELLANE ONE ×2 (09:55→10:50)
[2023-02-04] MEDS ORDERED: ceFAZolin 1,000 MG in SODIUM CHLORIDE 0.9% 1,000 ML IRRIGATION ONE (09:57)
--- NOTE | 2023-02-04 10:55 | P.OP ---
Date of Procedure: 02/04/23 Preoperative Diagnosis: Severe osteoarthritis right hip Postoperative Diagnosis: Severe osteoarthritis right hip Procedure(s) Performed: Right total hip arthroplasty with a direct anterior approach Implants: [employer] Polarstem standard size 4 with a collar [employer] R3, 3 hole hemispherical acetabular shell, 54 mm [employer] Reflection 6.5 mm cancellus screw, 20 mm 2 [employer] R3, XLPE 20 acetabular liner [employer] Oxinium femoral head 36 m, +12 All components were press-fit. The articulation is Oxinium on polyethylene. Anesthesia: spinal Surgeon: Sundeep Buckley Data Warehouse Administrator #1: Erin Torres Estimated Blood Loss (ml): 650 Pathology: none sent Condition: stable Disposition: PACU Indications for Procedure: After failure of conservative treatment we discussed the surgical and nonsu rgical treatment options at length. Patient wishes to proceed with a total hip arthroplasty with a direct anterior approach. Complications specific to this procedure were discussed at length, including but not limited to infection, leg length discrepancy, dislocation, nerve injury, and fracture. Covid-19 was also discussed at length with the patient, and they are aware of the current policies and procedures. The patient was given the option of delaying surgery, but they elect to proceed knowing these risks. Patient is aware of all these complications and informed consent was obtained Operative Findings: The operative findings are consistent with severe osteoarthritis of the right hip Description of Procedure: The patient was seen and evaluated in the preoperative area and the consent was reviewed. The operative site was marked with a skin marker. The patient verified the procedure and operative site. A KB block was placed by anesthesia in the preoperative area. The patient was then brought to the operating room and given preoperative antibiotics intravenously. 1 g of Tranexamic acid was also given intravenously. A spinal anesthetic was administered by the anesthesia department. The patient was then placed on the [place] table with the bony prominences well-padded. The hip area was then prepped with a ChloraPrep solution and draped in the usual sterile fashion. A universal timeout was then performed, which confirmed the patient's name, surgical site, ALLERGIES, and procedure being performed on the consent. Next the incision site was located at 1 cm distal and 4 cm lateral to the anterior superior iliac spine. The skin and subcutaneous tissues were sharply incised. Incision was carefully dissected down to the fascia overlying the tensor fascia lou muscle. This fascia was then incised in line with the muscle fibers. Care was taken to stay laterally in order to avoid injuring the lateral femoral cutaneous nerve. Next, using blunt finger dissection, the tensor fascia lou muscle was dissected off its investing fascia. The muscle was then carefully retracted laterally with a cobra retractor over the lateral neck of the femur. Next, the circumflex vessels were identified and cauterized using the Aquamantis device. The anterior hip capsule was then exposed. The capsule was then opened and an inverted T fashion. The retractors were then placed intracapsularly. The retractors were maintained intracapsular throughout the procedure. The proximal femur was then visualized. Fluoroscopic x-rays were then taken in order to evaluate the preoperative leg lengths. A small amount of traction was placed on the leg. The femoral neck was then osteotomized at the appropriate level above the lesser trochanter. A small wedge of bone was then removed from the remaining femoral head. Next, using a corkscrew the femoral head was removed from the acetabulum. On gross visual inspection, the femoral head had complete loss of articular cartilage and multiple periarticular osteophytes. The femoral head was then measured. Attention was then turned to the acetabulum. The acetabulum was exposed and any remaining labrum was excised. Sequential reaming of the acetabulum was performed using fluoroscopic guidance until there was a good bed of bleeding cancellus bone. When the appropriate size was reached, a trial was then placed. The position and fit of the trial was checked with fluoroscopy. The trial was then removed. Then, using fluoroscopic guidance, the final implant was impacted at 20 of anteversion and 40 of abduction, and fully seated in the acetabulum. 2 screws were then placed in the acetabulum. Again fluoroscopy was used to check position of the screws. Next, the liner was then impacted, with a 20 elevated liner located in the anterior superior quadrant. Component locking was confirmed. Attention was then directed to the femur. With the aid of the [place] table, the femur was externally rotated to approximately 130, extended, and adducted under the opposite leg. A side hook was then placed under the proximal femur, and the side hook elevator was used to elevate the proximal femur while releasing the capsule. Retractors were then placed. A capsular release was performed, as well as a release of the conjoined tendon, which afforded excellent v isualization of the proximal femur. Next, a box osteotome was used to lateralize the proximal femur. A hand plug shaper was then used to locate the femoral canal. Sequential broaching was then performed with appropriate size which afforded excellent fixation in the proximal femur. A trial was then placed with appropriate head and neck, and the hip was gently reduced with the aid of the [place] table. Fluoroscopy was then used to check position of the components, as well as to evaluate the leg lengths and offset. The leg lengths and offset were measured as closely as possible to ensure stability of the hip. The hip was then gently dislocated and the trials were then removed. Final implants were then impacted and the hip was again reduced. Final fluoroscopic x-rays confirmed that the components were in anatomic position. The leg lengths and offset were measured and were found to coincide with the trial measurements. The hip was also taken through range of motion, and found to be stable. The hip was then copiously irrigated with antibiotic solution with pulsatile lavage. The hip was then irrigated with Irrisept solution. The soft tissues were then injected with a ropivacaine solution. A second dose of 1 g of Tranexamic acid was also given intravenously. The fascia was then closed with 2-0 strata fix suture. The subcutaneous tissue was closed with 3-0 Vicryl. The subcuticular tissue was closed with 3-0 strata fix suture. The skin was then closed with Exofin skin glue. After the glue and dried, and Optifoam silver impregnated dressing was applied. The patient was t hen transferred to the recovery room in stable condition. The microbiology lab assistant NISHA Connelly was required due to the complexity of surgery, and the need for skilled operating room surgical technologist for positioning, draping, exposure, retraction, and closure of the wound.
[2023-02-04] MEDS ORDERED: LACTATED RINGERS 1,000 ML IV ONE (11:05)
--- NOTE | 2023-02-04 11:06 | XR ---
Intraoperative/procedural fluoroscopic services were provided for right total hip arthroplasty. Total fluoroscopy time is 31.4 seconds with a total of 3 submitted images to PACS. Total DAP 6.2679 Gycm2. Please see the operative note for further details.
--- NOTE | 2023-02-04 12:09 | XR ---
EXAMINATION TYPE: XR Hip Limited RT DATE OF EXAM: 02/04/2023 12:02 PM INDICATION: Patient age:Female; 67 years old; Reason for study: RIGHT ANTERIOR HIP; PHH. COMPARISON: Fluoroscopic images of the right hip of the same date TECHNIQUE: The right hip was examined in frontal projection. FINDINGS: Post right total hip arthroplasty changes. Hardware appears intact with appropriate alignme nt on this single frontal projection. There is associated soft tissue edema and gas. No acute fractur e or dislocation. IMPRESSION: Post right total hip arthroplasty changes. Hardware appears intact with appropriate alignment on this single frontal projection.
[2023-02-04] MEDS: SODIUM CHLORIDE 0.9% 1,000 ML IV SCH ×2 (15:17→23:55)
[2023-02-04] MEDS: HYDROcodone/APAP 7.5-325MG 1 EACH TAB PO PRN (17:31)
[2023-02-04] MEDS: ceFAZolin 3 GM in SODIUM CHLORIDE 0.9% 100 ML IVPB SCH (17:31)
[2023-02-04] MEDS: ASPIRIN 325 MG TAB PO SCH (20:40)
[2023-02-04] MEDS ORDERED: SENNOSIDES-DOCUSATE SODIUM 1 EACH TAB PO SCH (21:00)
[2023-02-05] MEDS: ceFAZolin 3 GM in SODIUM CHLORIDE 0.9% 100 ML IVPB SCH ×2 (01:48→09:42)
[2023-02-05 04:07] VITALS: RESP 17
[2023-02-05] MEDS: HYDROcodone/APAP 7.5-325MG 1 EACH TAB PO PRN (05:22)
[2023-02-05 08:11] VITALS: BP 123/78; PULSE 81; TEMP 96.6
[2023-02-05] MEDS ORDERED: DOCUSATE 100 MG CAP PO SCH (09:30)
[2023-02-05] MEDS: ASPIRIN 325 MG TAB PO SCH (09:42)
--- NOTE | 2023-02-05 10:09 | P.DS ---
Providers Expected date of discharge: 02/05/23 Attending physician: Sundeep Buckley Consults: 02/04/23 09:23 Consult Physician Routine Consulting Provider: Klever Francisco Consult Reason/Comments: medical management Do you want consulting provider notified?: Yes Primary care physician: Tea Ghotra - Discharge Diagnosis(es) (1) Osteoarthritis of right hip Current Visit: Yes Status: Acute (2) S/P total hip arthroplasty Current Visit: Yes Status: Acute Hospital Course: This is a 67-year-old female with known history of degenerative arthritis of the right hip. The patient presented for evaluation as an outpatient. After discussion and consideration patient elects to proceed with total hip arthroplasty. The patient is seen preoperatively by Dr. Buckley and medically cleared for surgery by their primary care physician. Patient is admitted to [facility] on 02/04/2023 for total hip arthroplasty. The procedure is performed without complication or sequelae. The patient is doing well postoperatively. Labs and vital signs are stable on day of discharge. On day of discharge patient's hip incision is healing well. There is minimal erythema. There is no drainage noted at this time. There is minimal soft tissue swelling to the hip and thigh. Patient has full foot and ankle motion without difficulty or pain. Calf is soft and nontender to palpation. Neurovascular status to the right lower extremity is intact. Patient is discharged home in good condition. Please see med rec for accurate list of home medications. Plan - Discharge Summary Discharge Rx Participant: Yes New Discharge Prescriptions: New Aspirin 325 mg PO BID #60 tab HYDROcodone/APAP 7.5-325MG [[place] 7.5-325] 1 - 2 tab PO Q6H PRN #32 tab PRN Reason: Pain Sennosides [Senokot] 2 tab PO DAILY PRN #60 tablet PRN Reason: Constipation No Action Multivit with Calcium,Iron,Min [Women's Multivitamin] 1 each PO DAILY Diclofenac Sodium Gel [Voltaren 1% Gel] 2 gm TOPICAL DIRECTED HYDROcodone/APAP 7.5-325MG [[place] 7.5-325] 1 - 2 each PO Q6HR PRN #42 tab PRN Reason: Pain Aspirin [Adult Low Dose Aspirin EC] 81 mg PO DAILY Clear Nails Pro (Antifungal) 1 dose TOPICAL BID Docusate [Colace] 100 mg PO BID #60 capsule lisinopriL [Prinivil] 10 mg PO DAILY #0 Discharge Medication List Aspirin [Adult Low Dose Aspirin EC] 81 mg PO DAILY 10/13/20 [History] Clear Nails Pro (Antifungal) 1 dose TOPICAL BID 10/13/20 [History] Diclofenac Sodium Gel [Voltaren 1% Gel] 2 gm TOPICAL DIRECTED 10/13/20 [History] Multivit with Calcium,Iron,Min [Women's Multivitamin] 1 each PO DAILY 10/13/20 [History] Docusate [Colace] 100 mg PO BID #60 capsule 10/20/20 [Rx] HYDROcodone/APAP 7.5-325MG [[place] 7.5-325] 1 - 2 each PO Q6HR PRN #42 tab 10/20/20 [Rx] lisinopriL [Prinivil] 10 mg PO DAILY #0 10/20/20 [Rx] Aspirin 325 mg PO BID #60 tab 02/04/23 [Rx] HYDROcodone/APAP 7.5-325MG [[place] 7.5-325] 1 - 2 tab PO Q6H PRN #32 tab 02/04/23 [Rx] Sennosides [Senokot] 2 tab PO DAILY PRN #60 tablet 02/04/23 [Rx] Follow up Appointment(s)/Referral(s): Tea Ghotra MD [Primary Care Provider] - 1 Week Sundeep Buckley DO [Doctor of Osteopathic Medicine] - 02/17/23 2:00 pm (With Erin) Activity/Diet/Wound Care/Special Instructions: Weightbearing as tolerated with walker. Leave dressing intact. Dressing may be removed by home care nurse or by patient in 7 days. Then change dressing twice daily until follow up. May shower with initial dressing intact and after removal. If dressing become saturated, please remove. Please take aspirin 325mg twice daily for 30 days to prevent blood clots. Recommend use of compression stockings daily until follow up to help prevent swelling and blood clots. May remove at night before sleeping. Please follow-up with [facility] in 2 weeks and call with any questions or concerns, . Discharge Disposition: HOME WITH HOME HEALTH SERVICES
[2023-02-05 11:34] LABS: Basophils # (A) 0.01 X 10*3/uL (0.00-0.10); Basophils % (A) 0.1 %; Eosinophils # (A) 0 X 10*3/uL (0.04-0.35); Eosinophils % (A) 0 %; HCT 37.1 % (37.2-46.3); HGB 11.8 g/dL (12.0-15.0); Lymphocytes # (A) 1.58 X 10*3/uL (0.90-5.00); Lymphocytes % (A) 14.5 %; MCH 30.6 pg (27.0-32.0); MCHC 31.8 g/dL (32.0-37.0); MCV 96.1 FL (80.0-97.0); Mean Platelet Volume 11.5 FL (9.5-12.2); Monocytes # (A) 1.47 X 10*3/uL (0.20-1.00); Monocytes % (A) 13.4 %; NRBC Per 100 WBC 0 X 10*3/uL (0.00-0.01); Neutrophils # (A) 7.83 X 10*3/uL (1.80-7.70); Neutrophils % (A) 71.6 %; Platelet Count 222 X 10*3/uL (140-440); RBC 3.86 X 10*6/uL (4.10-5.20); RDW 13.5 % (11.5-14.5); WBC 10.93 X 10*3/uL (4.50-10.00)
--- NOTE | 2023-02-05 11:43 | P.CONS ---
History of Present Illness - Reason for Consult Consult date: 02/05/23 - History of Present Illness This is a pleasant 67-year-old female with medical history of left breast cancer with left mastectomy and chemoradiation back in 2003, hypertension maintained on lisinopril daily. Patient is postoperative day #1 right hip total arthroplasty. Patient is also maintained on aspirin 81 mg daily this has been increased to aspirin 325 mg twice a day for 30 days following the orthopedic procedure. Would recommend at this time to hold patient's lisinopril as her blood pressure is in the 100-110 systolic recommend to monitor blood pressure at home and can resume lisinopril if blood pressure increases. REVIEW OF SYSTEMS: CONSTITUTIONAL: No fever, no malaise, no fatigue. HEENT: No recent visual problems or hearing problems. Denied any sore throat. CARDIOVASCULAR: No chest pain, orthopnea, PND, no palpitations, no syncope. PULMONARY: No shortness of breath, no cough, no hemoptysis. GASTROINTESTINAL: No diarrhea, no nausea, no vomiting, no abdominal pain. NEUROLOGICAL: No headaches, no weakness, no numbness. HEMATOLOGICAL: Denies any bleeding or petechiae. GENITOURINARY: Denies any burning micturition, frequency, or urgency. MUSCULOSKELETAL/RHEUMATOLOGICAL: Denies any joint pain, swelling, or any muscle pain. ENDOCRINE: Denies any polyuria or polydipsia. The rest of the 14-point review of systems is negative. PHYSICAL EXAMINATION: GENERAL: The patient is alert and oriented x3, not in any acute distress. Well developed, well nourished. HEENT: Pupils are round and equally reacting to light. EOMI. No scleral icterus. No conjunctival pallor. Normocephalic, atraumatic. No pharyngeal erythema. No thyromegaly. CARDIOVASCULAR: S1 and S2 present. No murmurs, rubs, or gallops. PULMONARY: Chest is clear to auscultation, no wheezing or crackles. ABDOMEN: Soft, nontender, nondistended, normoactive bowel sounds. No palpable organomegaly. MUSCULOSKELETAL: No joint swelling or deformity. EXTREMITIES: No cyanosis, clubbing, or pedal edema. Post Surgical right hip dr essing intact, no edema. NEUROLOGICAL: Gross neurological examination did not reveal any focal deficits. SKIN: No rashes. Assessment History right total hip arthroplasty postoperative day #1 Hypertension maintained on lisinopril recommend to hold for 1 to 2 days postoperative Hx left breast cancer with mastectomy and chemoradiation GI prophylaxis DVT prophylaxis as per primary Full Code Full Code Continue Aspirin 325 mg BID per orthopedics for 30 days post procedure afterwards recommend Continue with incentive spirometer 10 x an hour while awake As mentioned hold lisinopril and monitor Blood pressure Follow up with PCP Medically she is cleared for DC thank you for this consultation The impression and plan of care has been dictated by Yeni Singh, Nurse Practitioner as directed. Dr. Maryam MD I have performed a history and physical examination and medical decision making of this patient, discussed the same with the dictator, and agree with the dictators assessment and plan as written, documented as a scribe. Based on total visit time, I have performed more than 50% of this visit. Past Medical History Past Medical History: Cancer, Hypertension, Osteoarthritis (OA) Additional Past Medical History / Comment(s): LT BREAST CANCER 2003-HAD CHEMO AND RADIATION History of Any Multi-Drug Resistant Organisms: None Reported Past Surgical History: Breast Surgery, Joint Replacement, Tonsillectomy Additional Past Surgical History / Comment(s): breast cancer-HAD LT MASECTOMY. COLON TUMOR REMOVED-BENIGN. COLONOSCOPY. RT TKA Past Anesthesia/Blood Transfusion Reactions: No Reported Reaction Smoking Status: Former smoker - Past Family History Father History Unknown: Yes Additional Family Medical History / Comment(s): WAS RAISED BY NALLELY Mother History Unknown: Yes Son(s) Family Medical History: Cancer Additional Family Medical History / Comment(s): TESTICULAR CANCER Medications and Allergies Home Medications Medication Instructions Recorded Confirmed Type Aspirin [Adult Low Dose Aspirin EC] 81 mg PO DAILY 10/13/20 02/04/23 History Clear Nails Pro (Antifungal) 1 dose TOPICAL BID 10/13/20 02/04/23 History Diclofenac Sodium Gel [Voltaren 1% 2 gm TOPICAL DIRECTED 10/13/20 02/04/23 History Gel] Multivit with Calcium,Iron,Min 1 each PO DAILY 10/13/20 02/04/23 History [Women's Multivitamin] Docusate [Colace] 100 mg PO BID #60 capsule 10/20/20 02/04/23 Rx HYDROcodone/APAP 7.5-325MG [[place] 1 - 2 each PO Q6HR PRN #42 tab 10/20/20 02/04/23 Rx 7.5-325] lisinopriL [Prinivil] 10 mg PO DAILY #0 10/20/20 02/04/23 Rx Aspirin 325 mg PO BID #60 tab 02/04/23 Rx HYDROcodone/APAP 7.5-325MG [[place] 1 - 2 tab PO Q6H PRN #32 tab 02/04/23 Rx 7.5-325] Sennosides [Senokot] 2 tab PO DAILY PRN #60 tablet 02/04/23 Rx Allergies Allergy/AdvReac Type Severity Reaction Status Date / Time No Known Allergies Allergy Verified 02/04/23 07:29 Physical Exam Vitals: Vital Signs Temp Pulse Pulse Resp BP BP Pulse Ox 02/05/23 06:55 96.6 F L 81 17 123/78 96 02/05/23 01:42 98 F 75 17 118/70 91 L 02/04/23 19:37 98 F 93 16 104/70 93 L 02/04/23 15:09 98.2 F 101 H 16 119/83 97 02/04/23 14:30 90 16 124/63 98 02/04/23 14:00 83 16 118/65 98 02/04/23 13:30 80 16 105/65 98 02/04/23 13:00 81 16 119/67 98 02/04/23 12:45 78 16 118/67 98 02/04/23 12:30 87 16 129/67 98 02/04/23 12:15 83 16 122/66 98 02/04/23 11:59 77 16 126/70 100 02/04/23 11:44 71 16 129/64 97 02/04/23 11:35 73 16 109/63 97 02/04/23 11:20 97.9 F 90 16 97/57 92 L Intake and Output 02/04/23 02/05/23 02/05/23 22:59 06:59 14:59 Intake Total 840 Balance 840 Intake: Intake, IV Titration 840 Amount Sodium Chloride 0.9% 1, 840 000 ml @ 70 mls/hr IV . [id number] Rx#:[id number] Other: # Voids 1 3 1 Weight 130.4 kg Results CBC & Chem 7: 02/05/23 07:32 Assessment and Plan Time with Patient: Less than 30
[2023-02-06] MEDS ORDERED: MULTIVITAMINS, THERA 1 EACH TAB PO SCH (09:00)
== END 2023-02-05 11:42 | disposition home health service (06) ==
LOC: OR 06:56 → 4SSUR 11:20 → OR 02-05 11:42
PROVIDERS: ATTEND Orthopaedic Surgery
DX: M16.11 Unilateral primary osteoarthritis, right hip (principal); I10 Essential (primary) hypertension; Z79.899 Other long term (current) drug therapy; Z96.651 Presence of right artificial knee joint; Z90.710 Acquired absence of both cervix and uterus; Z90.12 Acquired absence of left breast and nipple
CPT/HCPCS: 73501; 27130; J2250; J1100; J0690 ×2; J2405; J3010; J2795; 64447; 85025

== ENCOUNTER → 2023-06-09 | Outpatient (CLI) | payer MEDICARE ==
--- NOTE | 2023-06-10 15:19 | MM ---
Reason for Exam: Hx of breast cancer, mastectomy. Last mammogram was performed 21 year(s) and 6 month(s) ago. Patient History: Menarche at age 11. First Full-Term at age 20. Postmenopausal. Breast cancer, age 46. Previous chest radiation therapy at age 46. Previous chemotherapy at age 46. Tamoxifen for 7 years from age 46 until age 53. Malignant Mastectomy. 12/07/2001, Malignant Excisional Biopsy on the left side. 2002, Radiation Therapy on the left side. Chemotherapy. Prior Study Comparison: 09/08/2015 Right Diagnostic Mammogram, [facility]. 12/31/2019 Right Diagnostic Mammogram, [facility]. 06/13/2021 Bilateral Screening Mammogram, [facility]. Tissue Density: Right: There are scattered areas of fibroglandular density. Findings: There is no suspicious group of microcalcifications or new suspicious mass. Overall Assessment: Negative, BI-RAD 1 Management: Screening Mammogram of both breasts in [address] [facility] will attempt to contact patient to return for supplemental views and ultrasound if indicated. Patient should continue monthly self-breast exams. A clinical breast exam by your physician is recommended on an annual basis. This exam should not preclude additional follow-up of suspicious palpable abnormalities. Note on Francia scores and lifetime risk: 1. A Francia score greater than 3% is considered moderate risk. If this is the case, consider specialist referral to assess eligibility for a risk reducing agent. 2. If overall lifetime risk for the development of breast cancer is 20% or higher, the patient may qualify for future screening with alternating mammogram and breast MRI. Electronically signed and approved by: Nolan Pappas DO
== END | disposition home or self-care (01) ==
LOC: RADMAMWWP 09:09
PROVIDERS: ATTEND Internal Medicine
DX: Z12.31 Encounter for screening mammogram for malignant neoplasm of breast (principal); Z85.3 Personal history of malignant neoplasm of breast; Z78.0 Asymptomatic menopausal state
CPT/HCPCS: 77067